=== PATIENT | male | born 1995 | race Caucasian/White ===

== ENCOUNTER 2017-01-22 18:46 | Emergency (ER) | payer OTHER ==
[2017-01-22] MEDS ORDERED: Sodium Chloride 0.9% 10 ML Syringe FLUSH PRN (18:49)
[2017-01-22] MEDS ORDERED: HYDROmorphone 1 MG/ML Syringe IVPUSH ONE ×2 (18:50→19:38)
[2017-01-22] MEDS ORDERED: LORazepam 2 MG/ML SDV IVPUSH ONE ×2 (18:50→19:38)
[2017-01-22] MEDS ORDERED: Sodium Chloride 0.9% 500 ML IV ONE (19:15)
[2017-01-22] MEDS ORDERED: HYDROmorphone 1 MG/ML Syringe ONE (19:30)
[2017-01-22] MEDS ORDERED: Take Home: Acetaminophen/HYDROcodone 325-10 MG, 5 Tab Pack PO ONE (19:49)
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
[2017-01-23 02:57] VITALS: BP 149/75
== END 2017-01-22 20:25 | disposition home or self-care (01) ==
LOC: VM.ED 18:46
DX: M24.411 Recurrent dislocation, right shoulder (principal)
CPT/HCPCS: 23650; 73030; 96361; 96374; 96375; 99284; J1170; J2060; J7040